=== PATIENT | male | born 1990 | race Caucasian/White ===

== ENCOUNTER 2017-02-24 23:29 | Emergency (ER) | payer OTHER ==
--- NOTE | 2017-02-24 23:39 | PDOC ---
History of Present Illness - General Chief Complaint: Injury Stated Complaint: BRUISING TO RT HIP, PAIN TO RT ANKLE S/P FALL Time Seen by Provider: 02/24/17 23:37 History Source: Patient Exam Limitations: No Limitations - History of Present Illness Initial Comments: 02/24/17 23:54 This is a 26-year-old male who comes in with his family for evaluation status post fall this morning. Patient said he slipped on ice his feet went out from under him and he went down onto his right buttocks area. Patient comes in complaining of a large ecchymotic area to his right but ox. Patient is also complaining of some right lateral neck pain and right ankle pain. Patient says he is otherwise healthy. He did not hit his head, did not pass out and denies any chest pain abdominal pain or pelvic pain. Patient is able to ambulate with minimal discomfort and has not taken anything for the pain. PAST MEDICAL HISTORY: no significant history PAST SURGICAL HISTORY: no significant history FAMILY HISTORY: no pertinant history SOCIAL HISTORY: Pt lives with family and is employed. MEDICATIONS: reviewed ALLERGIES: As per nursing notes Review of Systems General: No fevers or chills, no weakness, no weight loss HEENT: No change in vision. No sore throat,. No ear pain, right lateral neck pain as per history of present illness CardioVascular: No chest pain or shortness of breath Respiratory:No cough, or wheezing. Gastrointestinal: no nausea, vomitting, diarrhea or constipation, No rectal bleeding Genitourinary: No dysuria, hematuria, or frequency Musculoskeletal: Right buttocks and right ankle contusion as per history of present illness Neurologic: No headache, vertigo, dizziness or loss of consciousness Psychiatric: nor depression Skin: No rashes or easy bruising Endocrine: no increased thirst or abnormal weight change Allergic: no skin or latex allergy All other systems reviewed and normal GENERAL: The patient is awake, alert, and fully oriented, in no acute distress. HEAD: Normal with no signs of trauma. There is no C tenderness on palpation of the cervical spine. There is full range of motion of the cervical spine without any discomfort. There is some mild right lateral neck discomfort only on palpation. EYES: Pupils equal, round and reactive to light, extraocular movements intact, sclera anicteric, conjunctiva clear. BUTTOCK, PELVIS, AND HIPS: There is a contusion of the right upper buttock cheek that is ecchymotic. There is no bony tenderness of the pelvis or hips. EXTREMITIES: Right ankle there is no bony tenderness of either malleolus or the bones of the foot. There is some mild soft tissue tenderness and swelling to the ligaments of the right lateral ankle neurovascular is intact NEUROLOGICAL: Normal speech, normal gait. grossly intact PSYCH: Normal mood, normal affect. SKIN: Warm, Dry, normal turgor, no rashes or lesions noted. Assessment and plan: This is a 26-year-old male who slipped and fell on the ice approximately 12 hours ago. Patient now comes in for evaluation. Patient is noted to have a contusion of his buttocks that is relatively large, there is a mild sprain of the right ankle and some right lateral neck strain as a result of the fall. Patient was told to take Tylenol for his pain for the next 2-3 days after that take ibuprofen patient will also ice the contusion. Patient does have a primary care doctor he can follow-up with. Past History - Past Medical History Allergies/Adverse Reactions: Allergies Allergy/AdvReac Type Severity Reaction Status Date / Time No Known Allergies Allergy Unverified 02/24/17 23:30 Home Medications: Ambulatory Orders NK [No Known Home Medication] 07/21/14 - Immunization History Immunization Up to Date: Yes - Suicide/Smoking/Psychosocial Hx Smoking History: Never smoked *DC/Admit/Observation/Transfer Diagnosis at time of Disposition: Contusion of buttock Qualifiers: Encounter type: initial encounter Qualified Code(s): S30.0XXA - Contusion of lower back and pelvis, initial encounter Mild ankle sprain Qualifiers: Encounter type: initial encounter Laterality: right Qualified Code(s): S93.401A - Sprain of unspecified ligament of right ankle, initial encounter Strain of neck Qualifiers: Encounter type: initial encounter Qualified Code(s): S16.1XXA - Strain of muscle, fascia and tendon at neck level, initial encounter - Discharge Dispostion Disposition: HOME Condition at time of disposition: Good Admit: No - Referrals - Patient Instructions Additional Instructions: For the pain take Tylenol 2 tablets every 4-6 hours as needed after 3 days you can start taking ibuprofen not take ibuprofen for the next 3 days as it will cause some blood thinning properties and may cause a bruising to worsen. In addition to that you can ice the bruised area 20 minutes at a time 3-4 times a day for the next 2 days Return to the emergency department immediately with ANY new, persistent or worsening symptoms. Continue any medications as previously prescribed by your physician. You should follow up with your primary doctor as soon as possible regarding today's emergency department visit. . Please make sure your doctor reviews the results of your emergency evaluation. Thank you for coming to the Emergency Department today for your care. It was a pleasure to see you today. Please note that your evaluation is INCOMPLETE until you follow-up with your doctor. - Post Discharge Activity
[2017-02-24 23:56] VITALS: BP 130/72; PULSE 60; TEMP 97.8; BMI 31.5
== END 2017-02-25 | disposition home or self-care (01) ==
LOC: FER 23:29
DX: M25.571 Pain in right ankle and joints of right foot (principal); S30.0XXA Contusion of lower back and pelvis, initial encounter; S93.401A Sprain of unspecified ligament of right ankle, initial encounter; S16.1XXA Strain of muscle, fascia and tendon at neck level, initial encounter; W01.0XXA Fall on same level from slipping, tripping and stumbling without subsequent striking against object, initial encounter; Y93.89 Activity, other specified; Y92.9 Unspecified place or not applicable
CPT/HCPCS: 99281-25